=== PATIENT | female | born 1965 | race African-American/Black ===

== ENCOUNTER 2025-05-23 09:28 | Outpatient (CLI) | payer OTHER | END 2025-05-23 09:29 | disposition home or self-care (01) | LOC: CSHSLEEP 09:28 | PROVIDERS: ATTEND Internal Medicine | DX: G47.33 Obstructive sleep apnea (adult) (pediatric) (principal); J44.9 Chronic obstructive pulmonary disease, unspecified; R06.83 Snoring | CPT/HCPCS: 95810 ==